=== PATIENT | female | born 1950 | race Asian ===

== ENCOUNTER 2016-07-31 04:01 | Inpatient (IN) | payer BC ==
[~2016-07-31] VITALS: Ht 154.9 cm; Wt 68.0 kg
[2016-07-31] VITALS (7 sets, daily range): BP systolic 110–141; BP diastolic 61–80; PULSE 51–95; RESP 16–19; TEMP 96.5–98.3; O2SAT 95–99
--- NOTE | 2016-07-31 04:10 | NUR ---
Placed in room 3 . Placed on playground monitor, blood pressure machine and pulse oximeter. To gown for exam. Side rails up.
--- NOTE | 2016-07-31 04:15 | NUR ---
Pt brought to ED by with c/o left anterior chest pain 6/10 intermitten with numbness at right mouth and right arm, no facial drooping noted. Non-diaphoretic, skin intact. A&Ox4, denies SOB, denies N/V/D. Will continue to monitor
--- NOTE | 2016-07-31 04:26 | NUR ---
MD Tsang at bedside examining pt
[2016-07-31] MEDS ORDERED: NACL 0.9% 1,000 ML IV ONE (04:30)
[2016-07-31 04:46] LABS: BASOPHILS # (AUTO) 0.1 K/uL (0.0-0.2); BASOPHILS % (AUTO) 1.1 % (0.0-2.0); EOSINOPHILS # (AUTO) 0.5 K/uL (0.0-0.4); EOSINOPHILS % (AUTO) 4.6 % (0.0-4.0); HEMATOCRIT 38.5 % (36-48); HEMOGLOBIN 12.8 g/dL (12.0-16.0); LYMPHOCYTES # (AUTO) 2.7 K/uL (1.0-5.5); LYMPHOCYTES % (AUTO) 27.4 % (20.5-51.5); MEAN CORPUSCULAR HEMOGLOBIN 29 pg (27-31); MEAN CORPUSCULAR HGB CONC 33 % (32-36); MEAN CORPUSCULAR VOLUME 89 fL (79.0-98.0); MONOCYTES # (AUTO) 0.8 K/uL (0.0-1.0); MONOCYTES % (AUTO) 8.2 % (1.7-9.3); NEUTROPHILS # (AUTO) 5.7 K/uL (1.8-7.7); NEUTROPHILS % (AUTO) 58.7 % (40.0-70.0); PLATELET COUNT (AUTO) 299 K/uL (130-430); RED BLOOD CELL COUNT(AUTO) 4.36 MIL/uL (4.2-6.2); RED CELL DISTRIBUTION WIDTH 12.7 % (9.0-15.0); WHITE BLOOD COUNT (AUTO) 9.8 K/uL (4.8-10.8)
[2016-07-31 04:48] LABS: CALCIUM 8.9 mg/dL (8.4-11.0); CREATININE 1.57 mg/dL (0.55-1.30); POTASSIUM 3.8 mmol/L (3.5-5.1)
[2016-07-31 04:53] LABS: PROTHROMBIN TIME 11.3 SECS (9.5-12.5); TOTAL BILIRUBIN 0.4 mg/dL (0.0-1.0); TOTAL PROTEIN, SERUM 7.9 g/dL (6.4-8.3)
[2016-07-31] MEDS ORDERED: MORPHINE 4 MG/ML INJ. SYRINGE IVP ONE ×2 (05:00→05:15)
[2016-07-31] MEDS ORDERED: ATEN50TA PO (05:22)
[2016-07-31] MEDS ORDERED: OMEG300C3 PO (05:22)
[2016-07-31] MEDS ORDERED: LOSA1TAB36 PO (05:22)
[2016-07-31] MEDS ORDERED: METF-303 PO (05:22)
[2016-07-31] MEDS ORDERED: LEVO50TA77 PO (05:22)
[2016-07-31] MEDS ORDERED: GLIP10TA98 PO (05:22)
[2016-07-31] MEDS ORDERED: AMLO2.5T2 PO (05:22)
[2016-07-31] MEDS ORDERED: ASPI81TA2 PO (05:22)
[2016-07-31] MEDS ORDERED: CHOL500013 PO (05:22)
[2016-07-31] MEDS ORDERED: ATOR80TA63 PO (05:22)
--- NOTE | 2016-07-31 05:22 | NUR ---
Medication reconciliation completed with information provided by patient.
--- NOTE | 2016-07-31 06:25 | NUR ---
APatient will be admitted to care of . Admitted to telemetry unit. Will go to room 135. Belongings list completed. Summary report printed. Report will be given at bedside to linda LIPSCOMB
--- NOTE | 2016-07-31 06:29 | NUR ---
ADMISSION NOTE Received patient from ER via gurney. Patient admitted with diagnosis of CHEST PAIN. Patient is awake, alert, oriented X 4. Patient oriented to hospital room, call light, toileting, pain management and safety-teach back done. Personal belongings checked and Belongings List documented. Call light within reach.
[2016-07-31] MEDS: INSULIN REGULAR, HUMAN 100 UNITS/ML, 10 ML VIAL (novoLIN R) SUBCUT PRN ×2 (06:55→17:49)
--- NOTE | 2016-07-31 07:15 | NUR ---
ACCUCHECK/TRANSFERRED TO ROOM 108A Blood sugar 169; 2 units of Regular insulin was administered per sliding scale order. Educated pt. regarding medication and s/e. Pt. verbalized understanding. Pt. is ambulatory with steady gait and was able to transfer to wheelchair. Transferred to room 108A. Educated pt. regarding call light use and to call for assistance when getting OOB. Pt. verbalized understanding. Safety precautions in place. Spouse at bedside. Will endorse care to oncoming day shift nurse.
[2016-07-31] MEDS ORDERED: GLUCOSE 15 GM GEL (in 37.5 GM TUBE) PO PRN ×2 (07:45)
[2016-07-31] MEDS ORDERED: DEXTROSE 50%-WATER 50 ML DISP.SYRIN IVP PRN ×2 (07:45)
--- NOTE | 2016-07-31 08:20 | NUR ---
BEDSIDE ECHOCARDIOGRAM IN PROCESS.
[2016-07-31] MEDS: ENOXAPARIN SODIUM 30 MG/0.3 ML SYRINGE SUBCUT SCH (08:59)
[2016-07-31] MEDS: ASPIRIN 81 MG TAB.CHEW PO SCH (08:59)
[2016-07-31] MEDS: METOPROLOL TARTRATE 25 MG TABLET PO SCH (09:03)
--- NOTE | 2016-07-31 10:28 | NUR ---
PATIENT MOVED TO ROOM 102 DUE TO RESTROOM OUT OF ORDER IN ROOM 108. SON IS AT BEDSIDE.
--- NOTE | 2016-07-31 12:25 | NUR ---
BG 125, NO COVERAGE NEEDED
--- NOTE | 2016-07-31 13:38 | NUR ---
patient ate most of lunch, tolerated well. now resting. son remains at bedside
--- NOTE | 2016-07-31 17:11 | NUR ---
patient's son remains at bedside. they are asking when dr blount will make her rounds. pt bg 154, will cover w 2 units when pt tray has arrived
--- NOTE | 2016-07-31 20:34 | NUR ---
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
--- NOTE | 2016-07-31 20:39 | NUR ---
RN Notes: Pt alert and oriented. Able to make needs known. discussed with the pt the plan of care, verbalizes understanding well. Instructed to call for any discomfort or assistance. Call light within easy reach. Safety precautions applied and maintained. Continue monitor and assess.
[2016-07-31] MEDS: metFORMIN HCL 500 MG TABLET PO SCH (20:41)
[2016-07-31] MEDS: glipiZIDE XL 5 MG TAB ( GLUCOTROL XL) PO SCH ×2 (20:45→23:37)
[2016-07-31] MEDS: ATENOLOL 50 MG TABLET (TENORMIN) PO SCH (20:45)
--- NOTE | 2016-07-31 21:00 | NUR ---
Medication: Due medication administered, no aspiration noted. Instructed to call for any discomfort or assistance or discomfort, verbalizes understanding well. Call light within easy reach. Continue monitor and assess.
--- NOTE | 2016-07-31 21:39 | NUR ---
MD LAWLER CALLED [facility] AT SPOKE WITH DR.AZAB DUDLEY [employer]ANY PHOTOVOLTAIC PANEL INSTALLER.
--- NOTE | 2016-07-31 21:56 | NUR ---
2ND PAGE OUT TO CALLED [facility] AT SPOKE WITH DR.AZAB EGAN AMANY FRONTLOAD DRIVER.
--- NOTE | 2016-07-31 22:18 | NUR ---
Critical lab rsult: Troponin 0.118 , notified Dr. Aponte no new orders given, pt denies any chest pain or any discomfort.
--- NOTE | 2016-07-31 23:42 | NUR ---
PATIENT RESTING: Patient resting quietly. No acute distress noted. Vital signs within normal range.
--- NOTE | 2016-08-01 02:00 | NUR ---
PATIENT RESTING: Patient resting quietly. No acute distress noted. Safety precautions maintained.
--- NOTE | 2016-08-01 04:00 | NUR ---
PATIENT RESTING: Sinus Lee shows on tele monitor. Patient resting quietly. No acute distress noted. Vital signs within normal range. No complaints of discomfort at this time. Continue plan of care.
[2016-08-01 05:30] VITALS: BP 141/68; PULSE 54; RESP 16; TEMP 97.4; O2SAT 98
[2016-08-01] MEDS: LEVOTHYROXINE SODIUM 0.05 MG TABLET PO SCH (06:08)
--- NOTE | 2016-08-01 06:47 | NUR ---
Closing notes: No complaints of discomfort. Pt stable, not in any distress. Needs attended.
[2016-08-01 08:00] VITALS: BP 156/80; PULSE 52; RESP 16; TEMP 96.9; O2SAT 98
--- NOTE | 2016-08-01 08:00 | NUR ---
initial notes rec patient awake alert with hob elevated. ivl on the l ac intact. no infiltration noted. denies any chest pain at this time. no numbness noted as well.bed in low position and side rails up and locked.fall/ safety precaution instructed. call light within reached and knows when to call for assistance.
[2016-08-01] MEDS: ASPIRIN 81 MG TAB.CHEW PO SCH ×2 (08:57)
[2016-08-01] MEDS: METOPROLOL TARTRATE 25 MG TABLET PO SCH (08:58)
[2016-08-01] MEDS: metFORMIN HCL 500 MG TABLET PO SCH ×2 (08:58→20:53)
[2016-08-01] MEDS: glipiZIDE XL 5 MG TAB ( GLUCOTROL XL) PO SCH ×2 (08:59→20:53)
[2016-08-01] MEDS: ATORVASTATIN 20 MG TABLET PO SCH (08:59)
[2016-08-01] MEDS: amLODIPine BESYLATE 5 MG TABLET PO SCH (09:00)
[2016-08-01] MEDS: ATENOLOL 50 MG TABLET (TENORMIN) PO SCH ×2 (09:01→20:52)
[2016-08-01] MEDS: ENOXAPARIN SODIUM 30 MG/0.3 ML SYRINGE SUBCUT SCH (09:01)
[2016-08-01 09:52] LABS: CALCIUM 8.8 mg/dL (8.4-11.0); CREATININE 1.31 mg/dL (0.55-1.30); POTASSIUM 4.4 mmol/L (3.5-5.1)
[2016-08-01 09:53] LABS: BASOPHILS # (AUTO) 0.2 K/uL (0.0-0.2); BASOPHILS % (AUTO) 1.8 % (0.0-2.0); EOSINOPHILS # (AUTO) 0.5 K/uL (0.0-0.4); EOSINOPHILS % (AUTO) 5.5 % (0.0-4.0); HEMATOCRIT 35.2 % (36-48); HEMOGLOBIN 11.5 g/dL (12.0-16.0); LYMPHOCYTES # (AUTO) 3.1 K/uL (1.0-5.5); LYMPHOCYTES % (AUTO) 35.4 % (20.5-51.5); MEAN CORPUSCULAR HEMOGLOBIN 30 pg (27-31); MEAN CORPUSCULAR HGB CONC 33 % (32-36); MEAN CORPUSCULAR VOLUME 91 fL (79.0-98.0); MONOCYTES # (AUTO) 0.6 K/uL (0.0-1.0); MONOCYTES % (AUTO) 7.1 % (1.7-9.3); NEUTROPHILS # (AUTO) 4.3 K/uL (1.8-7.7); NEUTROPHILS % (AUTO) 50.2 % (40.0-70.0); PLATELET COUNT (AUTO) 229 K/uL (130-430); RED BLOOD CELL COUNT(AUTO) 3.89 MIL/uL (4.2-6.2); RED CELL DISTRIBUTION WIDTH 12.5 % (9.0-15.0); WHITE BLOOD COUNT (AUTO) 8.7 K/uL (4.8-10.8)
[2016-08-01 09:56] LABS: ALBUMIN 3.6 g/dL (3.4-4.8); TOTAL BILIRUBIN 0.5 mg/dL (0.0-1.0); TOTAL PROTEIN, SERUM 6.9 g/dL (6.4-8.3)
--- NOTE | 2016-08-01 10:00 | NUR ---
rounds seen by dr pride and dr knott and both with orders. no c/o chest pain at this time.
[2016-08-01] MEDS ORDERED: HEPARIN SODIUM,PORCINE 3000 UNITS/0.6 ML BOLUS IVP PRN (10:15)
[2016-08-01] MEDS ORDERED: HEPARIN SODIUM,PORCINE 2000 UNITS/0.4 ML BOLUS IVP PRN (10:15)
--- NOTE | 2016-08-01 10:54 | NUR ---
rounds npo at this time for stress test this pm as per dr knott.
[2016-08-01 12:21] VITALS: BP 147/65; PULSE 53; RESP 17; TEMP 97.4; O2SAT 97
--- NOTE | 2016-08-01 12:30 | NUR ---
rounds pt was picked by [employer] [employer] for stress test via wheelchair. ivl restarted on the r forearm#22. no infiltration noted. no hypo/hyperglycemic reaction noted.
--- NOTE | 2016-08-01 14:00 | NUR ---
rounds pt was back and ate lunch. family with patient at bedside.no acute distress noted.
--- NOTE | 2016-08-01 16:00 | NUR ---
rounds resting quietly at this time. no acute distress.
[2016-08-01 16:34] VITALS: BP 136/73; PULSE 60; RESP 19; TEMP 96.9; O2SAT 97
[2016-08-01] MEDS: RIVAROXABAN 10 MG TABLET PO SCH (18:00)
[2016-08-01] MEDS: INSULIN REGULAR, HUMAN 100 UNITS/ML, 10 ML VIAL (novoLIN R) SUBCUT PRN ×2 (18:02→20:51)
--- NOTE | 2016-08-01 18:14 | NUR ---
closing notes no hypo hyperglycemic reaction noted due meds given as ordered. bed in low position and side rails up and locked. call light within reached. no sob noted.
[2016-08-01] MEDS: HEPARIN 25,000 UNITS/D5W 250ML 250 ML IV PRN (19:02)
[2016-08-01] MEDS ORDERED: HEPARIN SODIUM,PORCINE 5000 UNITS/ML VIAL IV ONE (19:15)
--- NOTE | 2016-08-01 19:47 | NUR ---
PM ASSESSMENT PT. A/OX4, VITAL SIGNS STABLE, NO DISTRESS NOTED, DENIES PAIN, NOTED WITH HEPARIN DRIP @ 9ML/HR, UPDATED WITH PLAN OF CARE, ENCOURAGED PT. TO USE CALL LIGHT FOR ASSISTANCE, CALL LIGHT WITHIN REACH, WILL CONTINUE TO MONITOR.
[2016-08-01 19:53] VITALS: BP 131/61; PULSE 58; RESP 18; TEMP 97; O2SAT 97
--- NOTE | 2016-08-01 21:30 | NUR ---
RN ROUNDS PT. RESTING QUIETLY, VITAL SIGNS STABLE, NO DISTRESS NOTED, DENIES PAIN, CALL LIGHT WITHIN REACH, WILL CONTINUE TO MONITOR.
--- NOTE | 2016-08-01 23:30 | NUR ---
RN ROUNDS PT. RESTING QUIETLY, VITAL SIGNS STABLE, NO DISTRESS NOTED, DENIES PAIN, CALL LIGHT WITHIN REACH, WILL CONTINUE TO MONITOR.
[2016-08-01 23:51] VITALS: BP 134/59; PULSE 62; RESP 18; TEMP 96; O2SAT 98
--- NOTE | 2016-08-02 01:30 | NUR ---
RN ROUNDS PT. RESTING QUIETLY, VITAL SIGNS STABLE, NO DISTRESS NOTED, DENIES PAIN, CALL LIGHT WITHIN REACH, WILL CONTINUE TO MONITOR.
--- NOTE | 2016-08-02 02:12 | NUR ---
PTT RECEIVED CALL FROM LAB, PTT >150, HELD HEPARIN PER PROTOCOL. WILL CHECK PTT AGAIN IN 1 HOUR PER PROTOCOL.
--- NOTE | 2016-08-02 03:39 | NUR ---
RN ROUNDS PT. RESTING QUIETLY, VITAL SIGNS STABLE, NO DISTRESS NOTED, DENIES PAIN, CALL LIGHT WITHIN REACH, WILL CONTINUE TO MONITOR.
--- NOTE | 2016-08-02 03:56 | NUR ---
PTT RESULT LAB CALLED WITH PTT 118.5, WILL CONTINUE TO HOLD HEPARIN ORDERED PER PROTOCOL, WILL RESUME AT RATE DECREASED BY 2ML/HR ORDERED, AND APTT 6 HOURS AFTER RATE IS ADJUSTED PER PROTOCOL.
[2016-08-02 04:03] VITALS: BP 142/69; PULSE 65; RESP 16; TEMP 96.2; O2SAT 98
[2016-08-02] MEDS: HEPARIN 25,000 UNITS/D5W 250ML 250 ML IV PRN (05:00)
--- NOTE | 2016-08-02 05:30 | NUR ---
ACCUCHECK BLOOD OHSUD=045, NO COVERAGE REQUIRED.
[2016-08-02] MEDS: LEVOTHYROXINE SODIUM 0.05 MG TABLET PO SCH (05:44)
--- NOTE | 2016-08-02 06:19 | NUR ---
CLOSING NOTES PT. RESTING QUIETLY, VITAL SIGNS STABLE, NO DISTRESS NOTED, DENIES PAIN, CALL LIGHT WITHIN REACH, ALL ANTICIPATED NEEDS MET, KEPT COMFORTABLE.
--- NOTE | 2016-08-02 07:20 | NUR ---
PT TAKEN OUT OF DEPARTMENT BY CARDIOLOGY FOR SCHEDULED STRESS TEST
[2016-08-02] MEDS ORDERED: REGADENOSON 0.4 MG/5 ML SYRINGE IVP ONE (07:30)
--- NOTE | 2016-08-02 07:30 | NUR ---
OPENING NOTE STRESS TEST PART 1 COMPLETE AND PT RETURNED TO ROOM. VS STABLE AND PT IS NOT IN PAIN. PULSES STRONG BILATERALLY, BOTH RADIAL AND PEDAL, LUNG SOUNDS SLEAR. NO COMPLAINT OF ANGINA, NUMBNESS, THOUGH SHE IS EXPERIENCING SLIGHT VERTIGO
[2016-08-02 08:00] VITALS: BP 133/77; PULSE 66; RESP 16; TEMP 96.8; O2SAT 98
[2016-08-02] MEDS: ATORVASTATIN 20 MG TABLET PO SCH (08:18)
[2016-08-02] MEDS: ASPIRIN 81 MG TAB.CHEW PO SCH ×2 (08:19→08:26)
[2016-08-02] MEDS: ATENOLOL 50 MG TABLET (TENORMIN) PO SCH (08:22)
[2016-08-02] MEDS: glipiZIDE XL 5 MG TAB ( GLUCOTROL XL) PO SCH (08:24)
[2016-08-02] MEDS: amLODIPine BESYLATE 5 MG TABLET PO SCH (08:24)
[2016-08-02] MEDS: metFORMIN HCL 500 MG TABLET PO SCH (08:24)
--- NOTE | 2016-08-02 10:00 | NUR ---
rounds pt in bed, watching tv. no complaints of discomfort
--- NOTE | 2016-08-02 12:00 | NUR ---
rounds/dc planning pt sitting up in bed. Explained she was cleared by her commissions specialist and that we are waiting for Dr. Lemon to return my call. Pt plans to be discharged to home, transported by her son in a personal auto
[2016-08-02] MEDS: INSULIN REGULAR, HUMAN 100 UNITS/ML, 10 ML VIAL (novoLIN R) SUBCUT PRN (12:05)
[2016-08-02 13:02] VITALS: BP 134/65; PULSE 53; RESP 17; TEMP 97; O2SAT 99
--- NOTE | 2016-08-02 14:00 | NUR ---
ROUNDS PT RESTING IN BED, WAITING TO BE DISCHARGED. EDUCATED PT ON SIGNS AND SYMPTOMS OF A FL
--- NOTE | 2016-08-02 16:00 | NUR ---
ROUNDS/DC PLANNING PT WOULD LIKE TO LEAVE BETWEEN 1730 AND 1800, HER SON IS CURRENTLY AT WORK. WENT OVER PT PERSONAL BELONGINGS AND EDUCATED PT AND HER ON CHEST PAIN VARIANCES.
[2016-08-02] MEDS ORDERED: RIVA20TA PO (16:11)
[2016-08-02 16:16] VITALS: BP 135/78; PULSE 68; RESP 17; TEMP 96.3; O2SAT 99
[2016-08-02 16:35] VITALS: BP 123/71; PULSE 60; RESP 16; TEMP 97.4; O2SAT 97
--- NOTE | 2016-08-02 17:50 | NUR ---
D/C Patient Patient given medication reconciliation form and D/C instructions. Exit Care provided. Patient verbalized understanding. MD discussed with patient the results and treatment provided. Ambulatory with steady gait for discharge to home. Patient in stable condition, ID band removed. IV catheter removed, intact and dressing applied, no active bleeding. Rx of xaralto given. Patient educated on pain management and signs and symptoms of chest pain. All belongings sent with patient.
[2016-08-02] MEDS: RIVAROXABAN 10 MG TABLET PO SCH (18:00)
--- NOTE | 2016-08-04 14:39 | NUR ---
Discharge Follow Up Phone Calls: [facility] called and left a voice mail for pt ([phone]) on 08/03/16. RADIOLOGY INTERVENTIONAL PHYSICIAN called and spoke with pt today. Pt states that she is doing well; pt's prescriptions have been filled; pt has an appointment scheduled with Dr. Monzon in August; pt checks her blood sugar as directed by PCP. Pt expressed questions regarding medication instructions. RADIOLOGY INTERVENTIONAL PHYSICIAN encouraged pt to contact Dr. Monzon's office to obtain clarification regarding medication instructions and to move pt's appointment up sooner if needed. Pt expressed understanding and confirms that she has Dr. Monzon's contact information. Pt did not express any other needs or concerns and denied the need for additional follow up at this time. No further follow up phone calls required at this time.
== END 2016-08-02 17:50 | disposition home or self-care (01) | DRG 308 ==
LOC: SED 04:01 → STU 06:06
PROVIDERS: ATTEND Internal Medicine Hospice and Palliative Medicine
DX: I48.0 Paroxysmal atrial fibrillation (principal); N17.0 Acute kidney failure with tubular necrosis; I24.9 Acute ischemic heart disease, unspecified; I10 Essential (primary) hypertension; E78.5 Hyperlipidemia, unspecified; I25.119 Atherosclerotic heart disease of native coronary artery with unspecified angina pectoris; E11.9 Type 2 diabetes mellitus without complications; Z95.5 Presence of coronary angioplasty implant and graft; I25.2 Old myocardial infarction; Z79.899 Other long term (current) drug therapy; I20.9 Angina pectoris, unspecified
CPT/HCPCS: 36415; 71010; 80053; 82550-TC; 82962; 83880; 84484; 85025; 85610-TC; 85730-TC; 93005; 93017; 93306; A9500; J1644; J1650; J1815; J2270; J2785; J7030